=== PATIENT | male | born 1975 | race American Indian/Alaskan Native ===

== ENCOUNTER 2017-07-24 08:10 | Emergency (ER) | payer OTHER ==
[2017-07-24] MEDS ORDERED: BENADRYL IV ONE (09:07)
[2017-07-24] MEDS ORDERED: REGLAN IV ONE (09:07)
--- NOTE | 2017-07-24 09:10 | Emergency Department Report ---
ED Headache HPI - General Chief Complaint: Headache Stated Complaint: HEADACHE Time Seen by Provider: 07/24/17 09:07 Source: patient - History of Present Illness Initial Comments: Patient is a 42-year-old male with a history of high blood pressure on lisinopril but has not taken his blood pressure for the past 2 days. Patient presented today complaining of left-sided headache. Patient states that he had pain feels like a squeezing pain on the left side. Patient denies any fevers/ chills/blurry vision or dizziness. Patient states headache is nonradiating and only localized to the left temporal region. Quality: moderate Head Injury Location: temporal Associated Symptoms: denies: confusion, loss of consciousness, nausea/vomiting, stiff neck, vision changes Allergies/Adverse Reactions: Allergies No Known Allergies Allergy (Unverified 07/24/17 08:10) Home Medications: Ambulatory Orders Ibuprofen [Motrin] 800 mg PO Q8HR PRN #30 tablet 07/24/17 Lisinopril [Zestril TAB] 20 mg PO QDAY #30 tablet 07/24/17 Prochlorperazine [Compazine] 10 mg PO Q8HR #30 tablet 07/24/17 ED Review of Systems ROS: Stated complaint: HEADACHE Other details as noted in HPI ED Past Medical Hx - Past Medical History Previous Medical History?: Yes Hx Hypertension: Yes - Surgical History Past Surgical History?: No - Social History Smoking Status: Never Smoker Substance Use Type: Alcohol, Prescribed - Medications Home Medications: Home Medications Medication Instructions Recorded Confirmed Last Taken Type Ibuprofen [Motrin] 800 mg PO Q8HR PRN #30 tablet 07/24/17 Unknown Rx Lisinopril [Zestril TAB] 20 mg PO QDAY #30 tablet 07/24/17 Unknown Rx Prochlorperazine [Compazine] 10 mg PO Q8HR #30 tablet 07/24/17 Unknown Rx ED Physical Exam - General Limitations: No Limitations General appearance: alert, in no apparent distress - Head Head exam: Present: atraumatic, normocephalic - Eye Eye exam: Present: normal appearance, EOMI, conjunctival injection - ENT ENT exam: Present: mucous membranes moist - Neck Neck exam: Present: normal inspection - Respiratory Respiratory exam: Present: normal lung sounds bilaterally. Absent: respiratory distress, wheezes - Cardiovascular Cardiovascular Exam: Present: regular rate, normal rhythm. Absent: systolic murmur, diastolic murmur, rubs, gallop - GI/Abdominal GI/Abdominal exam: Present: soft, normal bowel sounds - Rectal Rectal exam: Present: deferred - Extremities Exam Extremities exam: Present: normal inspection - Back Exam Back exam: Present: normal inspection - Neurological Exam Neurological exam: Present: alert, oriented X3, CN II-XII intact, normal gait, reflexes normal - Expanded Neurological Exam Expanded Patient oriented to: Present: person, place, time Speech: Present: fluid speech Cranial nerves: EOM's Intact: Normal Cerebellar function: Finger to Nose: Normal Sensory exam: Upper Extremity Light Touch: Normal, Lower Extremity Light Touch: Normal Motor strength exam: RUE: 5, LUE: 5, RLE: 5, LLE: 5 DTR: knee (R): 2+, knee (L): 2+ Best Eye Response ([place]): (4) open spontaneously Best Motor Response ([place]): (6) obeys commands Best Verbal Response ([place]): (5) oriented [place] Total: 15 - Psychiatric Psychiatric exam: Present: normal affect, normal mood - Skin Skin exam: Present: warm, dry, intact, normal color. Absent: rash ED Course Vital Signs 07/24/17 07/24/17 07/24/17 08:11 09:29 09:55 Temperature 98.2 F Pulse Rate 79 67 Respiratory 22 20 Rate Blood Pressure 179/114 157/88 Blood Pressure [Left] O2 Sat by Pulse 100 Oximetry 07/24/17 09:56 Temperature Pulse Rate 67 Respiratory 20 Rate Blood Pressure Blood Pressure 157/88 [Left] O2 Sat by Pulse Oximetry ED Medical Decision Making - Radiology Data Radiology results: report reviewed CT of the head was obtained on 07/23/2017. CT of the head shows normal findings , no finger bleed, ventricles are normal,. Sinuses are normal. Normal CT scan - Medical Decision Making 42-year-old male presents with migraine headache. CBC, CMP was ordered with normal limits. CT of the head obtained CT normal She received IV Benadryl and Reglan while in ED. Patient reports feeling a bit better and migraine decreased in intensity Discussed CT and lab findings with the patient. I discussed the patient to make sure he takes his blood pressure medication and wants something for high blood pressure induced headache I discussed with the patient to take medication as prescribed for the headache. I discussed the patient if he has any worsening symptoms to return to ED immediately. Critical care attestation.: If time is entered above; I have spent that time in minutes in the direct care of this critically ill patient, excluding procedure time. ED Disposition Clinical Impression: Migraine headache without aura Qualifiers: Status migrainosus presence: without status migrainosus Intractability: not intractable Qualified Code(s): G43.009 - Migraine without aura, not intractable , without status migrainosus Acute nonintractable headache Qualifiers: Headache type: tension-type Qualified Code(s): G44.209 - Tension-type headache , unspecified, not intractable Disposition: DC- TO HOME OR SELFCARE Is pt being admited?: No Does the pt Need Aspirin: No Condition: Stable Instructions: Migraine Headache (ED), Acute Headache (ED) Additional Instructions: Make sure to follow up with the primary care physician as discussed. Take all your medications as you've been prescribed. If you have any worsening symptoms or develop new symptoms please return to ED immediately. Prescriptions: Ibuprofen [Motrin] 800 mg PO Q8HR PRN #30 tablet PRN Reason: Pain Lisinopril [Zestril TAB] 20 mg PO QDAY #30 tablet Prochlorperazine [Compazine] 10 mg PO Q8HR #30 tablet Referrals: [facility] [Other] - 3-5 Days Forms: Accompanied Note, Work/School Release Form(ED) Time of Disposition: 10:22
[2017-07-24] MEDS ORDERED: ZESTRIL PO ONE (09:46)
[2017-07-24 09:56] VITALS: BP 157/88
== END 2017-07-24 10:35 | disposition home or self-care (01) ==
LOC: ED 08:10
DX: G43.009 Migraine without aura, not intractable, without status migrainosus (principal); G44.209 Tension-type headache, unspecified, not intractable; I10 Essential (primary) hypertension
CPT/HCPCS: 96374; 96375; 99282; J1200; J2765